=== PATIENT | female | born 1950 ===

== ENCOUNTER 2023-04-23 18:14 | Emergency (ER) | payer MEDICARE, MEDICAID, SELFPAY ==
[2023-04-23 18:19] VITALS: BP 155/74; PULSE 101; RESP 18; TEMP 36.8; O2SAT 98; BMI 26.7
[2023-04-23 18:48] LABS: MANUAL DIFF FLAG NO
[2023-04-23 18:51] LABS: Basophils Percent Auto 0.3 % (0-2); Eosinophils Absolute Auto 0.6 X10*3/uL (0.0-0.4); Eosinophils Percent Auto 6.6 % (0-4); Hematocrit 35.8 % (37.0-47.0); Hemoglobin 12.2 g/dl (12.0-16.0); Imm Gran Abs Auto 0.02 X10*3/uL (0.00-0.03); Imm Gran Pct Auto 0.2 % (0.0-0.4); Lymphocytes Percent Auto 44.3 % (20-40); Mean Corpuscular HGB Conc 34.1 g/dl (31.0-35.0); Mean Corpuscular Hemoglobin 33.3 pg (27.0-33.0); Mean Corpuscular Volume 97.8 fL (80.0-98.0); Mean Platelet Volume 9.4 fL (9.4-12.3); Monocytes Absolute Auto 0.7 X10*3/uL (0.1-1.2); Monocytes Percent Auto 7.3 % (2-11); Neutrophils Absolute Auto 3.8 x10*3/uL (2.0-8.3); Neutrophils Percent Auto 41.3 % (45-73); Platelet Count 342 X10*3/uL (160-400); Red Blood Count 3.66 X10*6/uL (4.20-5.50); Red Cell Distribution Width 14.7 % (11.0-16.0); White Blood Count 9.1 X10*3/uL (4.8-10.8)
[2023-04-23 18:53] LABS: Appearance Urine Clear; Color Urine Yellow; Glucose Urine UA Negative (Negative); Leukocyte Esterase Urine Small (1+) (Negative); Nitrite Urine Negative (Negative); PH 5.5 (5.0-9.0); Specific Gravity - Urine 1.025 (1.005-1.025); UMIC TRIGGER UACC YES; Urine Blood Negative (Negative); Urine Ketones Trace mg/dL (Negative); Urine Protein Trace mg/dL (Neg-Trace)
[2023-04-23 18:55] LABS: Bacteria Urine None Seen (None Seen); Hyaline Casts Urine 0-2 /LPF (0-2); RBC Urine 0-2 /HPF (0-2); Squamous Epithelial Cell Urine 0-2 /HPF (0-2); UACC Culture Trigger YES
[2023-04-23 19:03] LABS: Alanine Aminotransferase 40 U/L (0-31); Albumin Level 4.3 g/dL (3.5-5.0); Alkaline Phosphatase 80 U/L (39-117); Anion Gap 14 (12-20); Aspartate Amino Transferase 36 U/L (5-31); Bilirubin Direct < 0.2 mg/dL (0.0-0.5); Bilirubin Total 0.1 mg/dL (0.0-1.0); Blood Urea Nitrogen 14 mg/dL (9-16); Calcium 9.8 mg/dL (8.4-10.2); Carbon Dioxide 25 mmol/L (22-29); Chloride 103 mmol/L (96-108); Creatinine Clr Calc Pharmacy 44.5; Estimated Glomerular Filt Rate > 60; Glucose Random 165 mg/dL (60-115); Lipase 22 U/L (8-78); Potassium 4.2 mmol/L (3.3-5.1); Sodium 138 mmol/L (135-145); Total Protein 7.9 g/dL (6.5-8.0)
== END 2023-04-23 23:00 | disposition left against medical advice (07) ==
PROVIDERS: Emergency Provider Emergency Medicine; PCP Internal Medicine
DX: R10.2 Pelvic and perineal pain (principal); Z79.899 Other long term (current) drug therapy
CPT/HCPCS: 36415; 80048; 80076; 81001; 83690; 85025; 87086; 99282; 99283

== ENCOUNTER 2023-05-22 07:49 | Day surgery (SDC) | payer MEDICARE, MEDICAID, SELFPAY ==
[2023-05-17 16:34] VITALS: BMI 26.6
--- NOTE | 2023-05-19 10:36 | P.CONAN_ITS ---
Documented by User: Isabel Coburn NP 05/19/23 10:36 HPI - Anesthesia Eval Consult details Narrative: 72yo F for Right Cataract Extraction IOL Insertion Medically cleared No previous cataract on record [facility] Past Medical History Medical History (Updated 05/17/23 @ 16:33 by Leida Costa RN) Hx: UTI (urinary tract infection) (~03/2023) Osteopenia DJD (degenerative joint disease) Cataract Asthma Anxiety Hypothyroid Elevated cholesterol HTN (hypertension) Surgical History Surgical History (Updated 05/17/23 @ 16:33 by Leida Costa RN) Hx of hysterectomy History of lumpectomy of both breasts History of carpal tunnel release of both wrists History of total replacement of both shoulder joints Social History Social History Patient Tobacco Use Status: Never used Tobacco Use of substances other than those prescribed or required for medical reasons: No Advance Directives: No Advance Directives Information Provided: Yes Meds Allergies Allergy/AdvReac Type Severity Reaction Status Date / Time latex Allergy Hives Verified 04/23/23 18:26 acetaminophen [From Percocet] AdvReac Vomiting Verified 04/23/23 18:26 oxycodone [From Percocet] AdvReac Vomiting Verified 04/23/23 18:26 Home Medications Medication Instructions Recorded Confirmed Last Taken Type albuterol sulfate 90 mcg/actuation 1 puff inhalation Q6H PRN 05/17/23 05/17/23 05/22/23 History aerosol inhaler Shortness Of Breath Or Wheezing amlodipine 2.5 mg tablet 2.5 mg PO DAILY 05/17/23 05/17/23 Unknown History calcium carbonate 500 mg-vitamin 1 tab PO DAILY 05/17/23 05/17/23 Unknown History D3 10 mcg (400 unit) chewable tablet fluticasone propionate 110 1 puff inhalation BID 05/17/23 05/17/23 Unknown History mcg/actuation HFA aerosol inhaler fluticasone propionate 50 1 spray intranasal BID 05/17/23 05/17/23 Unknown History mcg/actuation nasal spray,suspension levothyroxine 75 mcg tablet 75 mcg PO DAILY 05/17/23 05/17/23 05/22/23 History olmesartan 40 mg tablet 40 mg PO DAILY 05/17/23 05/17/23 Unknown History rosuvastatin 5 mg tablet 5 mg PO DAILY 05/17/23 05/17/23 Unknown History sertraline 25 mg tablet 25 mg PO DAILY 05/17/23 05/17/23 05/22/23 History Exam Height,Weight and Vital Signs: Height 4 ft 9 in Weight 55.792 kg Assessment and Plan Assessment Anesthesia Assessment: Chart Reviewed Documented by User: Sanjana Medellin MD 05/22/23 09:49 PMFSH Past Medical History Medical History (Updated 05/17/23 @ 16:33 by Leida Costa RN) Hx: UTI (urinary tract infection) (~03/2023) Osteopenia DJD (degenerative joint disease) Cataract Asthma Anxiety Hypothyroid Elevated cholesterol HTN (hypertension) Family History Family history of problems with anesthesia: No Surgical History Surgical History (Updated 05/17/23 @ 16:33 by Leida Costa, RN) Hx of hysterectomy History of lumpectomy of both breasts History of carpal tunnel release of both wrists History of total replacement of both shoulder joints History of Problems with Anesthesia: No Social History Social History Patient Tobacco Use Status: Never used Tobacco Use of substances other than those prescribed or required for medical reasons: No Advance Directives: No Advance Directives Information Provided: Yes Meds Allergies Allergy/AdvReac Type Severity Reaction Status Date / Time latex Allergy Hives Verified 04/23/23 18:26 acetaminophen [From Percocet] AdvReac Vomiting Verified 04/23/23 18:26 oxycodone [From Percocet] AdvReac Vomiting Verified 04/23/23 18:26 Home Medications Medication Instructions Recorded Confirmed Last Taken Type albuterol sulfate 90 mcg/actuation 1 puff inhalation Q6H PRN 05/17/23 05/17/23 05/22/23 History aerosol inhaler Shortness Of Breath Or Wheezing amlodipine 2.5 mg tablet 2.5 mg PO DAILY 05/17/23 05/17/23 Unknown History calcium carbonate 500 mg-vitamin 1 tab PO DAILY 05/17/23 05/17/23 Unknown History D3 10 mcg (400 unit) chewable tablet fluticasone propionate 110 1 puff inhalation BID 05/17/23 05/17/23 Unknown History mcg/actuation HFA aerosol inhaler fluticasone propionate 50 1 spray intranasal BID 05/17/23 05/17/23 Unknown History mcg/actuation nasal spray,suspension levothyroxine 75 mcg tablet 75 mcg PO DAILY 05/17/23 05/17/23 05/22/23 History olmesartan 40 mg tablet 40 mg PO DAILY 05/17/23 05/17/23 Unknown History rosuvastatin 5 mg tablet 5 mg PO DAILY 05/17/23 05/17/23 Unknown History sertraline 25 mg tablet 25 mg PO DAILY 05/17/23 05/17/23 05/22/23 History Exam Airway Mallampati Class: II TM Dist: >3cm Neck ROM: Full Heart: rrr Lungs: cta Assessment and Plan Assessment Anesthesia Assessment: Anesthesia Plan Discussed Final Anesthetic Review Family History of Problems with Anesthesia: No History of Problems with Anesthesia: No NPO: Yes ASA Class: III Final Preanesthetic Review: No Changes in Pt Med Stat, Meds/Allgs Chart Reviewed, Consent Obtained/Reviewed and Anes Risks/Benef Reviewed Patient Risk: Intermediate Procedure Risk: Low Anesthetic Plan Anesthetic Plan: MAC: Disposition: Standard PACU
[2023-05-22 08:42] VITALS: BMI 26.4
[2023-05-22 08:47] VITALS: BP 150/46; PULSE 88; RESP 18; TEMP 36.2; O2SAT 98; BMI 26.4
[2023-05-22] MEDS: Lactated Ringers 500 ML 50 ML IV (09:26)
[2023-05-22] MEDS: Phenylephrine HCL 2.5% Oph SoL 2 ML BOTTLE 1 DROP EYE-RIGHT ×3 (09:32→09:39)
[2023-05-22] MEDS: Cyclopentolate 1 % Ophth Sol 2 ML DRPBTL 1 DROP EYE-RIGHT ×3 (09:32→09:39)
[2023-05-22] MEDS: Tetracaine HCl/PF 0.5% Oph Sol 4 ML DROPS 1 DROP EYE-RIGHT (09:32)
[2023-05-22] MEDS: Ketorolac Tromethamine 0.5% Op 5 ML DROPS 1 DROP EYE-RIGHT ×3 (09:33→09:39)
[2023-05-22] MEDS: Tropicamide 1 % Ophth Sol 3 ML BTL 1 DROP EYE-RIGHT ×3 (09:33→09:39)
--- NOTE | 2023-05-22 11:38 | MHC.SHP ---
Pre-Procedural Eval Section A - 24 Hr Update-Section A only Date of Service: 05/22/23 The patient is an INPATIENT: No Changes since office visit: No Cold of Flu in the past 2 weeks, No New Medical Problems, No Changes in Medication and No Patient answered all questions The patient has been examined within 24 hours of the surgical procedure. The History & Physical has been completed within 30 days and I have reviewed it.: Yes Section B - Complete if H&P > 30 days Chief Complaint: Age-related nuclear cataract, right eye Allergies: Allergies Allergy/AdvReac Type Severity Reaction Status Date / Time latex Allergy Hives Verified 04/23/23 18:26 acetaminophen [From Percocet] AdvReac Vomiting Verified 04/23/23 18:26 oxycodone [From Percocet] AdvReac Vomiting Verified 04/23/23 18:26 Plan Diagnosis/Plan: Unchanged I have reviewed the history and physical and performed a pertinent physical examination on my patient. No changes have occurred unless specified. Time Spent With Patient Time: Total time managing care of this patient today ____ minutes.
--- NOTE | 2023-05-22 11:39 | HO.PNOPHT ---
Ophthalmology Procedure Procedure Date of Service: 05/22/23 Ophthalmology Viscoelastic: Healon Duet Dual Pack Pro Ophthalmology Lenses: Other (ma60 21.5) Procedure Notes: PREOPERATIVE DIAGNOSIS: Decreased visual acuity right eye secondary to cataract POSTOPERATIVE DIAGNOSIS: Same PROCEDURE: Right cataract extraction with intraocular lens insertion SURGEON: Que Meehan M.D. ANESTHESIA: Topical/MAC ESTIMATED BLOOD LOSS: None COMPLICATIONS: None After obtaining informed consent, the patient was brought to the operating room suite and placed in the supine position. After adequate sedation per anesthesia, topical drops of Tetracaine were given to the right eye. The eye was then prepped and draped in the usual sterile fashion. The operating room microscope was then positioned over the operative eye and a lid speculum placed. A paracentesis was created. Viscoelastic was then instilled into the anterior chamber. A three plane incision was then created temporally, utilizing a 2.85 mm keratome. Capsulotomy forceps were then utilized to create a circular tear capsulotomy. Hydrodissection and hydrodelineation were carried out until adequate mobilization of the nucleus occurred. Phacoemulsification was then utilized to remove the dense central nucleus followed by removal of the cortical material utilizing the automated aspiration irrigation unit. Viscoelastic was instilled into the posterior capsular bag followed by placement of a posterior chamber intraocular lens without difficulty. The residual Viscoelastic was then removed utilizing the automated IA machine. The wound was checked and found to be watertight. The patient tolerated the procedure well and the lid speculum was removed. Intracameral injection of Vigamox 0.1 mL followed by a subtenon injection of Kenalog-40 0.2 mL were administered. The patient will be seen in the a.m.
[2023-05-22 12:18] VITALS: BP 136/52; PULSE 82; RESP 16; TEMP 36.2; O2SAT 100
== END 2023-05-22 12:36 | disposition home or self-care (01) ==
PROVIDERS: PCP Internal Medicine; Visit Provider Ophthalmology
PROC: (CPT 66985; principal; 2023-05-22 09:40)
DX: H25.11 Age-related nuclear cataract, right eye (principal); H54.7 Unspecified visual loss; H18.413 Arcus senilis, bilateral; H43.393 Other vitreous opacities, bilateral; I10 Essential (primary) hypertension; E03.9 Hypothyroidism, unspecified; E78.00 Pure hypercholesterolemia, unspecified; J45.909 Unspecified asthma, uncomplicated; Z79.51 Long term (current) use of inhaled steroids; Z79.899 Other long term (current) drug therapy; Z88.5 Allergy status to narcotic agent; Z91.040 Latex allergy status
CPT/HCPCS: 66984; J2250; J3010; J3301; V2630

== ENCOUNTER 2023-06-05 08:06 | Day surgery (SDC) | payer MEDICARE, MEDICAID, SELFPAY ==
[2023-05-17 16:35] VITALS: BMI 26.6
[2023-06-05 08:44] VITALS: BMI 26.0
[2023-06-05 08:53] VITALS: BP 150/71; PULSE 94; RESP 16; TEMP 36.5; O2SAT 99
[2023-06-05] MEDS: Lactated Ringers 500 ML 50 ML IV (08:57)
[2023-06-05] MEDS: Tetracaine HCl/PF 0.5% Oph Sol 4 ML DROPS 1 DROP EYE-LEFT (08:58)
[2023-06-05] MEDS: Cyclopentolate 1 % Ophth Sol 2 ML DRPBTL 1 DROP EYE-LEFT ×3 (09:04→09:16)
[2023-06-05] MEDS: Tropicamide 1 % Ophth Sol 3 ML BTL 1 DROP EYE-LEFT ×3 (09:06→09:17)
[2023-06-05] MEDS: Ketorolac Tromethamine 0.5% Op 5 ML DROPS 1 DROP EYE-LEFT ×3 (09:07→09:18)
[2023-06-05] MEDS: Phenylephrine HCL 2.5% Oph SoL 2 ML BOTTLE 1 DROP EYE-LEFT ×3 (09:09→09:19)
--- NOTE | 2023-06-05 10:24 | HO.ANESPROP2 ---
HPI - Anesthesia Eval Consult details Narrative: Left eye cataract + IOL PMFSH Past Medical History Medical History Hx: UTI (urinary tract infection) (~03/2023) Osteopenia DJD (degenerative joint disease) Cataract Asthma Anxiety Hypothyroid Elevated cholesterol HTN (hypertension) Family History Family history of problems with anesthesia: No Surgical History Surgical History Hx of hysterectomy History of lumpectomy of both breasts History of carpal tunnel release of both wrists History of total replacement of both shoulder joints History of Problems with Anesthesia: No Social History Social History Patient Tobacco Use Status: Never used Tobacco Use of substances other than those prescribed or required for medical reasons: No Are you DNR?: No Advance Directives: No Advance Directives Information Provided: Yes Meds Allergies Allergy/AdvReac Type Severity Reaction Status Date / Time latex Allergy Hives Verified 04/23/23 18:26 acetaminophen [From Percocet] AdvReac Vomiting Verified 04/23/23 18:26 oxycodone [From Percocet] AdvReac Vomiting Verified 04/23/23 18:26 Active Medications: Current Medications Lactated Ringer's (Lr) 500 mls @ 50 mls/hr IV .Q10H LIVIA Stop: 06/05/23 18:44 Last Admin: 06/05/23 08:57 Dose: 50 mls/hr Povidone Iodine (Povidone Iodine 5 % Ophth Soln 30 Ml Bottle) 1 appl EYE-LEFT PREOP PRN PRN Reason: Pre-Op Surgical Implant Prophy Home Medications Medication Instructions Recorded Confirmed Last Taken Type albuterol sulfate 90 mcg/actuation 1 puff inhalation Q6H PRN 05/17/23 05/17/23 05/22/23 History aerosol inhaler Shortness Of Breath Or Wheezing amlodipine 2.5 mg tablet 2.5 mg PO DAILY 05/17/23 05/17/23 Unknown History calcium carbonate 500 mg-vitamin 1 tab PO DAILY 05/17/23 05/17/23 Unknown History D3 10 mcg (400 unit) chewable tablet fluticasone propionate 110 1 puff inhalation BID 05/17/23 05/17/23 Unknown History mcg/actuation HFA aerosol inhaler fluticasone propionate 50 1 spray intranasal BID 05/17/23 05/17/23 Unknown History mcg/actuation nasal spray,suspension levothyroxine 75 mcg tablet 75 mcg PO DAILY 05/17/23 05/17/23 05/22/23 History olmesartan 40 mg tablet 40 mg PO DAILY 05/17/23 05/17/23 Unknown History rosuvastatin 5 mg tablet 5 mg PO DAILY 05/17/23 05/17/23 Unknown History sertraline 25 mg tablet 25 mg PO DAILY 05/17/23 05/17/23 05/22/23 History Exam Height,Weight and Vital Signs: Height 4 ft 9 in Weight 54.431 kg Last Vital Signs Temp 97.7 F 06/05/23 08:53 Pulse 94 06/05/23 08:53 Resp 16 06/05/23 08:53 BP 150/71 H 06/05/23 08:53 Pulse Ox 99 06/05/23 08:53 O2 Del Method Room Air 06/05/23 08:53 Airway Mallampati Class: II TM Dist: >3cm Neck ROM: Full Loose/Missing/Broken Teeth: Yes Heart: rrr+[id number] Lungs: cta b/l Assessment and Plan Assessment Anesthesia Assessment: Anesthesia Plan Discussed and Chart Reviewed Final Anesthetic Review Family History of Problems with Anesthesia: No History of Problems with Anesthesia: No NPO: Yes ASA Class: III Final Preanesthetic Review: No Changes in Pt Med Stat, Meds/Allgs Chart Reviewed, Consent Obtained/Reviewed and Anes Risks/Benef Reviewed Patient Risk: Intermediate Procedure Risk: Intermediate Assessment/Block/Sedation in SS: Assess/Block/Sedation-SS Anesthetic Plan Anesthetic Plan: MAC:
--- NOTE | 2023-06-05 12:20 | MHC.SHP ---
Pre-Procedural Eval Section A - 24 Hr Update-Section A only Date of Service: 06/05/23 The patient is an INPATIENT: No Changes since office visit: No Cold of Flu in the past 2 weeks, No New Medical Problems, No Changes in Medication and No Patient answered all questions The patient has been examined within 24 hours of the surgical procedure. The History & Physical has been completed within 30 days and I have reviewed it.: Yes Section B - Complete if H&P > 30 days Chief Complaint: Age-related nuclear cataract, left eye Allergies: Allergies Allergy/AdvReac Type Severity Reaction Status Date / Time latex Allergy Hives Verified 04/23/23 18:26 acetaminophen [From Percocet] AdvReac Vomiting Verified 04/23/23 18:26 oxycodone [From Percocet] AdvReac Vomiting Verified 04/23/23 18:26 Plan Diagnosis/Plan: Unchanged I have reviewed the history and physical and performed a pertinent physical examination on my patient. No changes have occurred unless specified. Time Spent With Patient Time: Total time managing care of this patient today ____ minutes.
--- NOTE | 2023-06-05 12:21 | HO.PNOPHT ---
Ophthalmology Procedure Procedure Date of Service: 06/05/23 Ophthalmology Viscoelastic: Healon Duet Dual Pack Pro Ophthalmology Lenses: Other (ma60 22 ) Procedure Notes: PREOPERATIVE DIAGNOSIS: Decreased visual acuity left eye secondary to cataract POSTOPERATIVE DIAGNOSIS: Same PROCEDURE: Left cataract extraction with intraocular lens insertion SURGEON: Que Meehan M.D. ANESTHESIA: Topical/MAC ESTIMATED BLOOD LOSS: None COMPLICATIONS: None After obtaining informed consent, the patient was brought to the operation room suite and placed in the supine position. After adequate sedation per anesthesia, topical drops of Tetracaine were given to the left eye. The eye was then prepped and draped in the usual sterile fashion. The operating room microscope was then positioned over the operative eye and a lid speculum placed. A paracentesis was created. Viscoelastic was then instilled into the anterior chamber. A three plane incision was then created temporally, utilizing a 2.85 mm keratome. Capsulotomy forceps were then utilized to create a circular tear capsulotomy. Hydrodissection and hydrodelineation were carried out until adequate mobilization of the nucleus occurred. Phacoemulsification was then utilized to remove the dense central nucleus followed by removal of the cortical material utilizing the automated aspiration irrigation unit. Viscoat elastic was instilled into the posterior capsular bag followed by placement of a posterior chamber intraocular lens without difficulty. The residual Viscoat elastic was then removed utilizing the automated IA machine. The wound was check and found to be watertight. The patient tolerated the procedure well and the lid speculum was removed. Intracameral injection of Vigamox 0.1 mL followed by a subtenon injection of Kenalog-40 0.2 mL were administered. The patient will be seen in the a.m.
[2023-06-05 12:54] VITALS: BP 119/50; PULSE 91; RESP 11; TEMP 36.2; O2SAT 99
[2023-06-05 13:09] VITALS: BP 122/55; PULSE 85; RESP 18; TEMP 36.9; O2SAT 95
== END 2023-06-05 13:11 | disposition home or self-care (01) ==
PROVIDERS: PCP Internal Medicine; Visit Provider Ophthalmology
PROC: (CPT 66985; principal; 2023-06-05 10:30)
DX: H25.12 Age-related nuclear cataract, left eye (principal); H54.7 Unspecified visual loss; H18.413 Arcus senilis, bilateral; H43.393 Other vitreous opacities, bilateral; I10 Essential (primary) hypertension; E78.00 Pure hypercholesterolemia, unspecified; E03.9 Hypothyroidism, unspecified; Z79.899 Other long term (current) drug therapy; Z79.51 Long term (current) use of inhaled steroids; Z88.5 Allergy status to narcotic agent
CPT/HCPCS: 66984; J2250; J3010; J3301; V2630

== ENCOUNTER 2023-06-12 15:01 | Outpatient (AMB) | payer MEDICARE, MEDICAID, SELFPAY ==
--- NOTE | 2023-06-12 15:14 | A.OFFVIS_ITS ---
Intake Intake Visit Reasons: recurrent UTI/hx of kidney stones Intake Note: Patient presents today for a follow up on UTI hystory of kidney stones Meds- None Allergies to Antibiotic- No Known Allergies Blood Thinner- None Patient Symptoms: Patient stated she does not have any pain or burning when she urinates. Pct Required: No Accompanied by: [employer] (daugther) Allergies latex Allergy (Verified 06/12/23 15:27) Hives acetaminophen [From Percocet] Adverse Reaction (Verified 06/12/23 15:27) Vomiting oxycodone [From Percocet] Adverse Reaction (Verified 06/12/23 15:27) Vomiting HPI HPI Comments History of Present Illness Details Mile is a 72-year-old female who is here with her daughter for evaluation for recurrent UTIs. She states for she has had UTI about every other month over the last 12 months. She denies history of breast cancer family history of breast cancer. Status post hysterectomy. She states she has not currently sexually active. I reviewed transabdominal pelvic ultrasound performed 04/06/2023 which was within normal limits She has problems with constipation and uses MiraLax. Urinalysis is within normal limits. I have discussed further evaluation with renal ultrasound and office cystoscopy. Will consider local vaginal estrogen cream on follow-up [facility] Medical History Hx: UTI (urinary tract infection) (~03/2023) Osteopenia DJD (degenerative joint disease) Cataract Asthma Anxiety Hypothyroid Elevated cholesterol HTN (hypertension) Surgical History Hx of hysterectomy History of lumpectomy of both breasts History of carpal tunnel release of both wrists History of total replacement of both shoulder joints Social History Patient Tobacco Use Status: Never used Tobacco Review of Systems Const All systems reviewed & are unremarkable except as noted in HPI and below Reports no additional complaints Eyes Reports no additional complaints ENT Reports no additional complaints Card Reports no additional complaints Resp Reports no additional complaints GI Reports no additional complaints Reports as per HPI Musc Reports no additional complaints Skin/Breast Reports system reviewed and no additional complaints, except as documented Neuro Reports no additional complaints Psych Reports no additional complaints Endo Reports no additional complaints Ryan/Lymph Reports no additional complaints Aller/Immun Reports no additional complaints Physical Exam Const General: cooperative, healthy appearing and no acute distress Orientation/consciousness: patient oriented x3 HEENT Head: Yes normal to inspection, Yes normocephalic and Yes atraumatic Eyes Conjunctivae: conjunctivae normal Neck Neck: Yes normal visual inspection and Yes trachea midline Chest Chest palpation & inspection: normal inspection of the chest Resp Effort & Inspection: normal respiratory effort Cardio Rate: regular rate GI Inspection: Yes normal to inspection Skin General skin exam: no rashes or lesions noted Neuro General: patient oriented x3 Extrem General: No edema Psych Appearance: grossly normal Results AMB Urinalysis, Automated UA Leukoctes 0 Susan/uL Last Edit by Gilda Wrightlauren Wright [facility] on 06/12/23 15 :37 UA Nitrite Negative [facility], [facility] on 06/12/23 15: 37 UA Urobilinogen 3.5 mg/dL Last Edit by Gilda Wrightlauren Wright [facility] on 4 15:37 UA Protein mg/dL Last Edit by [facility], [facility] on 06/12/23 15:37 0.15 g/L [facility] 06/12/23 15:37 UA pH 5.5 Last Edit by Gilda Wright Wright [facility] on 06/12/23 15:37 UA Blood 0 Kenny/uL Last Edit by [facility] on 06/12/23 15:37 UA Specific [place] 1.030 Last Edit by [facility], [facility] on 15:37 UA Ketone Negative Last Edit [facility] on 06/12/23 15:3 7 UA Bilirubin 0 mg/dL Last Edit by [facility] on 06/12/23 15: 37 UA Glucose 0 mg/dL Last Edit by Gilda Wright CMA on 06/12/23 15:37 Results Reviewed Results Reviewed: Laboratory Last Values Urine pH (Auto) 5.5 06/12/23 15:35 Specific [place] (Auto) 1.030 06/12/23 15:35 Urine Protein (Auto) mg/dL 06/12/23 15:35 Glucose (UA)(Auto) 0 mg/dL 06/12/23 15:35 Urine Ketones (Auto) Negative 06/12/23 15:35 Urine Blood (Auto) 0 Kenny/uL 06/12/23 15:35 Urine Nitrite (Auto) Negative 06/12/23 15:35 Urine Bilirubin (Auto) 0 mg/dL 06/12/23 15:35 Urine Urobilinogen (Auto) 3.5 mg/dL 06/12/23 15:35 Leukocyte Esterase (Auto) 0 Susan/uL 06/12/23 15:35 Assessment & Plan Assessment & Plan (1) Recurrent UTI: Code(s): N39.0 - Urinary tract infection, site not specified (2) Constipation: Code(s): K59.00 - Constipation, unspecified (3) Vaginal atrophy: Code(s): N95.2 - Postmenopausal atrophic vaginitis Plan Renal ultrasound. Follow-up office cystoscopy Orders: Orders AMB Urinalysis Automated Today R33.9 - Retention of urine, unspecified US renal BI Today N39.0 - Urinary tract infection, site not specified Patient Instructions: The patient had an opportunity to ask questions regarding treatment plan. All questions were answered. Imaging, Laboratory studies and physical exam results were discussed and reviewed in detail. No major barriers to understanding were identified. The patient expressed understanding and agreement with the above treatment plan. The patient is aware they should contact our office by phone for worsening of their current condition or the appearance of new symptoms. Compliance is encouraged with any medications and followup testing that is ordered. It is a privilege to be allowed the opportunity to participate in the urologic care of your patient. If you have any questions or concerns regarding treatment for the above conditions please do not hesitate to contact me. The office telephone contact is [phone]. This note is constructed in part using voice recognition software. While every effort has been made to ensure accuracy shoe laster errors may have been included. Yours sincerely, Val Arauz MD Coding Level of Care Code New Pt Level 4 (07965) Diagnoses Recurrent UTI N39.0 Constipation K59.00 Vaginal atrophy N95.2
== END 2023-06-12 16:14 | disposition home or self-care (01) ==
PROVIDERS: PCP Internal Medicine; Visit Provider Urology
DX: N39.0 Urinary tract infection, site not specified (principal); K59.00 Constipation, unspecified; N95.2 Postmenopausal atrophic vaginitis; R33.9 Retention of urine, unspecified
CPT/HCPCS: 99204

== ENCOUNTER → 2023-06-12 15:01 | Outpatient (BNVA) | payer MEDICARE, MEDICAID, SELFPAY | PROVIDERS: PCP Internal Medicine; Visit Provider Urology | DX: N39.0 Urinary tract infection, site not specified (principal); K59.00 Constipation, unspecified; N95.2 Postmenopausal atrophic vaginitis | CPT/HCPCS: 81003; 99202 ==

== ENCOUNTER 2023-06-26 10:04 | Outpatient (REF) | payer MEDICARE, MEDICAID, SELFPAY ==
--- NOTE | ~2023-06-26 | US_ITS ---
EXAMINATION: US RETROPERITONEAL LIMITED (RENAL ONLY) CLINICAL INFORMATION: Urinary tract infection, site not specified. COMPARISON: None available. TECHNIQUE: Real-time imaging of the kidneys. Limited visualization due to bowel gas. FINDINGS: RIGHT KIDNEY: 9.2 x 4.2 x 4.4 cm (SAG x AP x TRV). No hydronephrosis. No renal calculi. Renal cortical thickness is normal. Limited visualization. LEFT KIDNEY: 9.1 x 4.0 x 5.1 cm (SAG x AP x TRV). No hydronephrosis. No renal calculi. Renal cortical thickness is normal. Limited visualization. US/US renal BI IMPRESSION: No hydronephrosis. No renal calculi.
== END 2023-06-26 10:05 | disposition home or self-care (01) ==
LOC: HO.US 10:04
PROVIDERS: PCP Internal Medicine; Visit Provider Urology
DX: N39.0 Urinary tract infection, site not specified (principal)
CPT/HCPCS: 76775